=== PATIENT | male | born 1945 | race Caucasian/White ===

== ENCOUNTER 2020-08-08 11:27 | Outpatient (NON) | payer MEDICARE, SELFPAY ==
[2020-08-09 01:18] LABS: SARS-CoV-2 RNA PCR Negative
== END 2020-08-08 11:28 ==
PROVIDERS: PCP Internal Medicine; Visit Provider Internal Medicine
DX: Z20.828 Contact with and (suspected) exposure to other viral communicable diseases (principal); R05 Cough
CPT/HCPCS: 87635; C9803; U0003

== ENCOUNTER 2022-11-27 10:12 | Emergency (ER) | payer MEDICARE, SELFPAY ==
[2022-11-27] VITALS (12 sets, daily range): BP systolic 128–156; BP diastolic 58–67; PULSE 46–64; RESP 13–25; TEMP 36.7; O2SAT 98–100
--- NOTE | ~2022-11-27 | CT_ITS ---
EXAMINATION: CT brain wo con DATE: 11/27/2022 11:48 INDICATION: Dizziness TECHNIQUE: Computed tomography (CT) of the head was performed without intravenous contrast. Sagittal and coronal reconstructions were performed. The mA was adjusted according to patient size. Iterative reconstruction technique was employed. The dose-length product was 605.33 mGy-cm. COMPARISON: head CT dated 01/01/2018 FINDINGS: No acute intracranial hemorrhage, acute infarction or abnormal extra axial fluid collection. There is mild scattered white matter hypoattenuation consistent with chronic small vessel ischemic disease. S ymmetric prominence of the sulci consistent with mild age-appropriate diffuse cerebral volume loss. V entricles are normal and symmetric. No mass/mass effect. Changes of bilateral intraocular lens replac ement. The orbits and mastoid air cells are normal. Mucosal thickening in the paranasal sinuses most prominent at the bilateral ethmoid sinuses. There is dependently layering bubbly mucus in the bilater al maxillary sinuses. IMPRESSION: 1. No acute intracranial process. 2. Age-related changes including mild diffuse volume loss and mild scattered white matter hypoattenua tion consistent with chronic small vessel ischemic disease. 2. Sinus disease with bubbly mucus in the bilateral maxillary sinuses. Correlate clinically for acute sinusitis. Reviewed, dictated and finalized at location L. IMPRESSION: 1. No acute intracranial process. 2. Age-related changes including mild diffuse volume loss and mild scattered wh ite matter hypoattenuation consistent with chronic small vessel ischemic diseas e. 2. Sinus disease with bubbly mucus in the bilateral maxillary sinuses. Correlat e clinically for acute sinusitis.
--- NOTE | 2022-11-27 10:25 | ECG_ITS ---
Measurements Intervals Staley Rate: 56 P: 77 VA: 182 QRS: 18 QRSD: 110 T: 39 QT: 444 QTc: 429 Interpretive Statements SINUS BRADYCARDIA INCOMPLETE RIGHT BUNDLE BRANCH BLOCK BORDERLINE ECG NO PREVIOUS ECG AVAILABLE FOR COMPARISON Electronically Signed On 11-27-2022 11:27:29 CDT by Narinder Geller D.O.
--- NOTE | 2022-11-27 10:58 | ED.DIZZY ---
HPI - Dizziness General Chief Complaint: Dizziness Stated Complaint: Ear infection Time Seen by Provider: 11/27/22 10:45 Source: patient Mode of arrival: ambulatory (with penny) Limitations: no limitations History of Present Illness HPI Narrative: This is a 77 year old male that presents to the ER for dizziness. Ongoing since yesterday. Reports this is worse with standing. Associated with nausea and vomiting. Reports it makes him feel off balance. Reports he has associated hearing loss on the left side. Reports a ringing in his ear. Denies fever, ear pain, discharge from the ear, chest pain, shortness of breath, or focal numbness or weakness. Related Data Home Medications Medication Instructions Recorded Confirmed dronedarone 400 mg tablet (Multaq) 400 mg PO BID 08/20/19 11/07/22 dutasteride 0.5 mg-tamsulosin ER 1 cap PO DAILY 08/20/19 11/07/22 0.4 mg capsule ext.release 24hr mphas (Hilary) magnesium chloride 71.5 mg 71.5 mg PO BID 08/20/19 11/07/22 (magnesium chloride) tablet,delayed release (Slow-Mag) rivaroxaban 20 mg tablet (Xarelto) 20 mg PO DAILY 08/20/19 11/07/22 omega 9-snt-ret-fish oil 1,000 mg 2 cap PO BID 11/29/20 11/07/22 (120 mg-180 mg) capsule (Fish Oil) cholecalciferol (vitamin D3) 50 50 mcg PO DAILY 04/04/21 11/07/22 mcg (2,000 unit) capsule Allergies Allergy/AdvReac Type Severity Reaction Status Date / Time No Known Allergies Allergy Verified 11/27/22 11:04 Review of Systems Review of Systems: CONSTITUTIONAL: Denies fever EYES: Denies visual changes ENT: Reports congestion. Denies otalgia. CARDIOVASCULAR: Denies chest pain RESPIRATORY: Denies dyspnea. GASTROINTESTINAL: Reports nausea, vomiting NEUROLOGIC: Denies headache, numbness, or weakness. All systems reviewed & are unremarkable except as noted in HPI and below PMFSH Past Medical History Medical History (Updated 11/27/22 @ 13:56 by Marianna Heredia PA-C) Atrial fibrillation BMI 31.0-31.9,adult BMI 32.0-32.9,adult BMI 33.0-33.9,adult BMI 34.0-34.9,adult BPH (benign prostatic hyperplasia) Cat scratch of lower leg Cough CVA (cerebral vascular accident) 12/2017 Degenerative joint disease of knee DJD (degenerative joint disease) Elevated PSA Encounter for Medicare annual wellness exam Encounter for routine adult health examination without abnormal findings Exposure to COVID-19 virus Family history of diabetes mellitus Hearing loss Hyperlipidemia Hypertension Hypomagnesemia Macrocytosis On intermediate drug therapy Onychomycosis BONNY (obstructive sleep apnea) BONNY on CPAP Personal history of COVID-19 Right ankle swelling Routine eye exam Vitamin B12 deficiency Vitamin D deficiency Surgical History Surgical History History of total knee replacement (TKR) S/P cataract surgery Family History Family History Sibling Patient's brother is Father Family history of kidney disease Family history of diabetes mellitus in first degree relative, Onset Age: 90 Family history of dementia Family history of congestive heart failure Patient's father is , Onset Age: 90 Diabetes mellitus Mother Family history of Alzheimer's disease Patient's mother is , Onset Age: 87 Other Family history of cardiovascular disease Family history of suicide Social History Social History Smoking status: Never smoker Second hand tobacco smoke exposure: No Alcohol intake: never Lack of Transportation: No Lack of Food: Never True Current Housing: I Have Housing Concerned About Future Housing: No Difficulty Paying Gas/Electric Bills: No Difficulty Paying for Meds: No Currently Unemployed: No Education: Bachelor's Degree Difficulty w/ Childcare or Family Care: No Gender identity (if verbalized by the patient): Mal
[2022-11-27] MEDS: ONDANSETRON INJ 4 MG/2 ML VIAL IV PUSH (11:30)
[2022-11-27] MEDS: SODIUM CHLORIDE 0.9% IV 500 ML 999 ML IV CONT (11:30)
[2022-11-27] MEDS: MECLIZINE HCL 25 MG TABLET PO (11:30)
[2022-11-27 12:09] LABS: Basophils Percent Auto 0.5 % (0.2-1.2); Eosinophils Absolute Auto 0.1 K/mm3 (0-0.3); Eosinophils Percent Auto 2.5 % (0-4.4); Hematocrit 38.2 % (42.0-52.0); Hemoglobin 12.4 g/dL (14.0-18.0); Immature Granulocyte Absolute 0.02 K/mm3 (0.00-0.031); Immature Granulocyte Percent A 0.4 % (0-0.5); Lymphocytes Absolute Auto 0.79 K/mm3 (0.9-3.2); Lymphocytes Percent Auto 14.2 % (18.3-44.2); Mean Corpuscular HGB Conc 32.5 g/dl (32-36); Mean Corpuscular Hemoglobin 33.3 pg (26-34); Mean Corpuscular Volume 102.7 fl (80-100); Mean Platelet Volume 11.3 fl (7.4-10.4); Monocytes Absolute Auto 0.4 K/mm3 (0.1-0.6); Monocytes Percent Auto 6.5 % (2.6-8.5); Neutrophils Absolute Auto 4.2 K/mm3 (1.3-6.7); Neutrophils Percent Auto 75.9 % (45.5-73.1); Platelet Count Result 170 k/mm3 (150-375); Red Blood Count 3.72 M/mm3 (4.6-6.20); Red Cell Distribution Width 13.9 % (11.5-14.5); White Blood Count 5.6 K/mm3 (4.5-10.0)
[2022-11-27 12:21] LABS: Alanine Aminotransferase 15 U/L (6-50); Albumin Level 4.3 g/dL (3.5-5.1); Alkaline Phosphatase 71 U/L (38-126); Anion Gap 7 mmol/L (8-16); Aspartate Amino Transferase 23 U/L (17-59); Bilirubin,Total 0.8 mg/dL (0.2-1.3); Blood Urea Nitrogen 7 mg/dL (9-20); Calcium 8.3 mg/dL (8.4-10.2); Carbon Dioxide 22 mmol/L (22-30); Chloride 109 mmol/L (98-107); Estimated CRCL calculation 68 ml/min; Estimated Glomerular Filt Rate > 60; Glucose 116 mg/dL (65-110); Potassium 4.3 mmol/L (3.4-5.0); Sodium 138 mmol/L (137-145)
--- NOTE | 2022-11-27 13:19 | PC.NURSE ---
assumed care of pt. pt resting on stretcher, no distress noted. pt denies current dizziness or pain at this time
--- NOTE | 2022-11-27 13:50 | PC.NURSE ---
ambulated pt per provider's request. pt reported slight dizziness upon sitting, but subsided prior to standing. pt ambulated around nurses' desk. no gait disturbances noted, pt denies complaint or dizziness. provider aware
== END 2022-11-27 14:40 | disposition home or self-care (01) ==
PROVIDERS: Emergency Provider Physician Assistant; PCP Internal Medicine
DX: R42 Dizziness and giddiness (principal); J32.0 Chronic maxillary sinusitis; I48.91 Unspecified atrial fibrillation; E78.5 Hyperlipidemia, unspecified; I10 Essential (primary) hypertension; G47.33 Obstructive sleep apnea (adult) (pediatric); E53.8 Deficiency of other specified B group vitamins; E55.9 Vitamin D deficiency, unspecified; M17.9 Osteoarthritis of knee, unspecified; Z86.73 Personal history of transient ischemic attack (TIA), and cerebral infarction without residual deficits; Z96.659 Presence of unspecified artificial knee joint; Z98.49 Cataract extraction status, unspecified eye; Z79.01 Long term (current) use of anticoagulants; R00.1 Bradycardia, unspecified; I45.10 Unspecified right bundle-branch block
CPT/HCPCS: 36415; 70450; 80053; 85025; 93005; 96361; 96374; 99284; A9270; J2405; J7040

== ENCOUNTER 2023-01-03 07:44 | Outpatient (CLI) | payer MEDICARE, SELFPAY | END 2023-01-03 07:45 | disposition home or self-care (01) | LOC: ANHAUDIO 07:46 | PROVIDERS: PCP Internal Medicine; Visit Provider Otolaryngology | DX: H90.3 Sensorineural hearing loss, bilateral (principal) | CPT/HCPCS: 92557; 92567 ==

== ENCOUNTER 2023-01-13 13:32 | Emergency (ER) | payer MEDICARE, SELFPAY ==
[2023-01-13 13:58] VITALS: BP 135/58; PULSE 68; RESP 16; TEMP 37.1; O2SAT 98
--- NOTE | 2023-01-13 14:14 | ED.SKABFB ---
HPI - Skin/Abscess/Foreign Bdy General Chief complaint: Skin/Abscess/Foreign Body Stated complaint: cat bite/infection Time Seen by Provider: 01/13/23 14:14 Source: patient, RN notes reviewed and old records reviewed Mode of arrival: ambulatory Limitations: no limitations History of Present Illness HPI narrative: 77-year-old male who presents to [facility] care with complaints of being bit by cat last night at his home. Today patient noted swelling to his left forearm around entire circumference of left forearm with streaking up the inner arm toward elbow. Patient denies any acute fevers, chills or sweats , Patient has noted 4 puncture wounds to left forearm from cat. Patient reports concern for increased infection of left arm due to previous left elbow replacement surgery. Patient states his tetanus is up to date from 3 years ago when cat bit his leg. MD complaint: other ( cat bite) Onset (ago): day(s) (occurred yesterday) Tetanus up to date: yes (received 3 years ago) Severity scale (1-10): 3 Treatments prior to arrival: other (cleansed with soap and water) Related Data Home Medications Medication Instructions Recorded Confirmed dronedarone 400 mg tablet (Multaq) 400 mg PO BID 08/20/19 01/13/23 dutasteride 0.5 mg-tamsulosin ER 1 cap PO DAILY 08/20/19 01/13/23 0.4 mg capsule ext.release 24hr mphas (Hilary) magnesium chloride 71.5 mg 71.5 mg PO BID 08/20/19 01/13/23 (magnesium chloride) tablet,delayed release (Slow-Mag) rivaroxaban 20 mg tablet (Xarelto) 20 mg PO DAILY 08/20/19 01/13/23 omega 2-uum-uan-fish oil 1,000 mg 2 cap PO BID 11/29/20 01/13/23 (120 mg-180 mg) capsule (Fish Oil) cholecalciferol (vitamin D3) 50 50 mcg PO DAILY 04/04/21 01/13/23 mcg (2,000 unit) capsule Allergies Allergy/AdvReac Type Severity Reaction Status Date / Time No Known Allergies Allergy Verified 01/13/23 13:47 Review of Systems Review of Systems: CONSTITUTIONAL: Denies fever, chills, or sweats. CARDIOVASCULAR: Denies chest pain, palpitations, or edema. RESPIRATORY: Denies cough or dyspnea. GASTROINTESTINAL: Denies abdominal pain, nausea, vomiting SKIN: Reports redness and swelling. Denies purulent drainage, has circumferential redness to left forearm with 4 bite reilly to left forearm. MUSCULOSKELETAL: Denies myalgia. NEUROLOGIC: Denies headache, numbness All systems reviewed & are unremarkable except as noted in HPI and below PMFSH Past Medical History Medical History Atrial fibrillation BMI 31.0-31.9,adult BMI 32.0-32.9,adult BMI 33.0-33.9,adult BMI 34.0-34.9,adult BPH (benign prostatic hyperplasia) Cat scratch of lower leg Cough CVA (cerebral vascular accident) 12/2017 Degenerative joint disease of knee DJD (degenerative joint disease) Elevated PSA Encounter for Medicare annual wellness exam Encounter for routine adult health examination without abnormal findings Exposure to COVID-19 virus Family history of diabetes mellitus Hearing loss Hyperlipidemia Hypertension Hypomagnesemia Macrocytosis On intermediate drug therapy Onychomycosis BONNY (obstructive sleep apnea) BONNY on CPAP Personal history of COVID-19 Right ankle swelling Routine eye exam Vitamin B12 deficiency Vitamin D deficiency Surgical History Surgical History History of total knee replacement (TKR) S/P cataract surgery Family History Family History Sibling Patient's brother is Father Family history of kidney disease Family history of diabetes mellitus in first degree relative, Onset Age: 90 Family history of dementia Family history of congestive heart failure Patient's father is , Onset Age: 90 Diabetes mellitus Mother Family history of Alzheimer's disease Patient's mother is , Onset Age: 87 Other Family history of cardiovasc
== END 2023-01-13 14:35 | disposition short-term general hospital (02) ==
PROVIDERS: Emergency Provider Registered Nurse; PCP Internal Medicine
DX: S51.842A Puncture wound with foreign body of left forearm, initial encounter (principal); L03.114 Cellulitis of left upper limb; W55.01XA Bitten by cat, initial encounter; I48.91 Unspecified atrial fibrillation; Z86.73 Personal history of transient ischemic attack (TIA), and cerebral infarction without residual deficits; E78.5 Hyperlipidemia, unspecified; I10 Essential (primary) hypertension; G47.33 Obstructive sleep apnea (adult) (pediatric); Z86.16 Personal history of COVID-19; E55.9 Vitamin D deficiency, unspecified
CPT/HCPCS: 99212; G0463

== ENCOUNTER 2023-01-13 14:54 | Emergency (ER) | payer MEDICARE, SELFPAY ==
--- NOTE | ~2023-01-13 | XR_ITS ---
EXAMINATION: XR forearm LT 2V INDICATION: Two views of the left forearm are obtained four radiographs. TECHNIQUE: 06/30/2009 COMPARISON: None available FINDINGS: There are changes of radial head replacement. Bone alignment is normal. There is no fractur e. There is moderate soft tissue swelling of the distal forearm. IMPRESSION: 1. Moderate soft tissue swelling of the distal forearm without acute osseous abnormality Reviewed, dictated and finalized at location F. IMPRESSION: 1. Moderate soft tissue swelling of the distal forearm without acute osseous ab normality
[2023-01-13 15:00] VITALS: BP 177/61; PULSE 68; RESP 16; TEMP 36.5; O2SAT 100
--- NOTE | 2023-01-13 15:54 | ED.ANIMALBIT ---
HPI - Animal Bite General Chief Complaint: Animal Bite Stated Complaint: Cat bite Time Seen by Provider: 01/13/23 15:29 Source: patient, RN notes reviewed and old records reviewed Mode of arrival: ambulatory Limitations: no limitations History of Present Illness HPI narrative: This is a 77 year old male who presents for evaluation of left arm infection. He states last night his cat scatched his left forearm. He states the cat was sitting on him and he was trying to get up and the catch scratched him. He now has swelling at site of puncture wounds and streaking up his arm. He states last year, he suffered a cat bite and he got cat scratch fever. He went for evaluation at [facility] and he was referred to ER for IV antibiotics. His tetanus was up dated last year. He denies fever, chills, nausea or vomiting. Related Data Home Medications Medication Instructions Recorded Confirmed dronedarone 400 mg tablet (Multaq) 400 mg PO BID 08/20/19 01/13/23 dutasteride 0.5 mg-tamsulosin ER 1 cap PO DAILY 08/20/19 01/13/23 0.4 mg capsule ext.release 24hr mphas (Hilary) magnesium chloride 71.5 mg 71.5 mg PO BID 08/20/19 01/13/23 (magnesium chloride) tablet,delayed release (Slow-Mag) rivaroxaban 20 mg tablet (Xarelto) 20 mg PO DAILY 08/20/19 01/13/23 omega 2-noa-qir-fish oil 1,000 mg 2 cap PO BID 11/29/20 01/13/23 (120 mg-180 mg) capsule (Fish Oil) cholecalciferol (vitamin D3) 50 50 mcg PO DAILY 04/04/21 01/13/23 mcg (2,000 unit) capsule Allergies Allergy/AdvReac Type Severity Reaction Status Date / Time No Known Allergies Allergy Verified 01/13/23 13:47 Review of Systems Constitutional: Constitutional: Denies weakness Cardiovascular: Cardiovascular: Denies syncope, Denies rapid heart rate, Denies irregular heart rhythm, Denies leg edema and Denies dyspnea Respiratory: Respiratory: Denies chest congestion, Denies hemoptysis, Denies excessive phlegm production and Denies dyspnea Gastrointestinal: Gastrointestinal: Denies abdominal pain, Denies hematochezia, Denies diarrhea and Denies vomiting Genitourinary: Genitourinary: Denies hematuria, Denies dysuria, Denies penile discharge and Denies testicular pain Musculoskeletal: Musculoskeletal: Denies joint swelling, Denies loss of height and Denies muscle weakness Integumentary/Breasts: Skin/Breast: Reports erythema Neurologic: Denies syncope, Denies focal weakness and Denies weakness PMFSH Past Medical History Medical History Atrial fibrillation BMI 31.0-31.9,adult BMI 32.0-32.9,adult BMI 33.0-33.9,adult BMI 34.0-34.9,adult BPH (benign prostatic hyperplasia) Cat scratch of lower leg Cough CVA (cerebral vascular accident) 12/2017 Degenerative joint disease of knee DJD (degenerative joint disease) Elevated PSA Encounter for Medicare annual wellness exam Encounter for routine adult health examination without abnormal findings Exposure to COVID-19 virus Family history of diabetes mellitus Hearing loss Hyperlipidemia Hypertension Hypomagnesemia Macrocytosis 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 Onychomycosis BONNY (obstructive sleep apnea) BONNY on CPAP Personal history of COVID-19 Right ankle swelling Routine eye exam Vitamin B12 deficiency Vitamin D deficiency Surgical History Surgical History History of total knee replacement (TKR) S/P cataract surgery Family History Family History Sibling Patient's brother is Father Family history of kidney disease Family history of diabetes mellitus in first degree relative, Onset Age: 90 Family history of dementia Family history of congestive heart failure Patient's father is , Onset Age: 90 Diabetes mellitus Mother Family history of Alzheimer's disease Patient's mother is , Onset Age: 87 Other Family histor
[2023-01-13] MEDS: AMPICILLIN SULB 3 GM/NS 100 ML 3 GM/100 ML VIAL IVPB (15:57)
[2023-01-13 15:58] LABS: Basophils Absolute Auto 0.1 K/mm3 (0.0-0.1); Basophils Percent Auto 0.5 % (0.2-1.2); Eosinophils Absolute Auto 0.3 K/mm3 (0-0.3); Eosinophils Percent Auto 2.6 % (0-4.4); Hemoglobin 13.5 g/dL (14.0-18.0); Immature Granulocyte Absolute 0.02 K/mm3 (0.00-0.031); Immature Granulocyte Percent A 0.2 % (0-0.5); Lymphocytes Absolute Auto 1.75 K/mm3 (0.9-3.2); Lymphocytes Percent Auto 17.8 % (18.3-44.2); Mean Corpuscular HGB Conc 33.8 g/dl (32-36); Mean Corpuscular Hemoglobin 33.5 pg (26-34); Mean Corpuscular Volume 99.3 fl (80-100); Mean Platelet Volume 10.6 fl (7.4-10.4); Monocytes Percent Auto 9.7 % (2.6-8.5); Neutrophils Absolute Auto 6.8 K/mm3 (1.3-6.7); Neutrophils Percent Auto 69.2 % (45.5-73.1); Platelet Count Result 194 k/mm3 (150-375); Red Blood Count 4.03 M/mm3 (4.6-6.20); Red Cell Distribution Width 13.7 % (11.5-14.5); White Blood Count 9.8 K/mm3 (4.5-10.0)
[2023-01-13 17:52] LABS: Alanine Aminotransferase 19 U/L (6-50); Albumin Level 4.7 g/dL (3.5-5.1); Alkaline Phosphatase 88 U/L (38-126); Anion Gap 10 mmol/L (8-16); Aspartate Amino Transferase 25 U/L (17-59); Bilirubin,Total 0.8 mg/dL (0.2-1.3); Blood Urea Nitrogen 17 mg/dL (9-20); Calcium 8.7 mg/dL (8.4-10.2); Carbon Dioxide 24 mmol/L (22-30); Chloride 104 mmol/L (98-107); Estimated CRCL calculation 59 ml/min; Estimated Glomerular Filt Rate > 60; Glucose 101 mg/dL (65-110); Potassium 4.6 mmol/L (3.4-5.0); Sodium 138 mmol/L (137-145)
[2023-01-13] MEDS: AMOXICILLIN/CLAVULANATE K 500-125 MG TAB 1 TABLET PO (18:25)
[2023-01-13 18:41] VITALS: BP 150/70; PULSE 54; RESP 16; TEMP 36.8; O2SAT 100
== END 2023-01-13 18:43 | disposition home or self-care (01) ==
PROVIDERS: Emergency Provider General Practice; PCP Internal Medicine
DX: S50.812A Abrasion of left forearm, initial encounter (principal); I48.91 Unspecified atrial fibrillation; I10 Essential (primary) hypertension; G47.30 Sleep apnea, unspecified; W55.03XA Scratched by cat, initial encounter
CPT/HCPCS: 36415; 73090; 80053; 85025; 86140; 96365; 99284; A9270; J0295

== ENCOUNTER → 2023-01-15 10:45 | Outpatient (CLI) | payer MEDICARE, SELFPAY ==
--- NOTE | ~2023-01-15 | MR_ITS ---
EXAMINATION: MR brain IAC wo/w con DATE: 01/15/2023 11:41 INDICATION: Left-sided hearing loss. TECHNIQUE: Magnetic resonance imaging (MRI) of the brain, brainstem, and internal auditory canals was performed without and with 20 mL MultiHance intravenous contrast. COMPARISON: Head CT 11/27/2022 FINDINGS: There is an old infarct involving the left insula and left frontoparietal region. There are scattered areas of nonspecific increased T2-weighted signal intensity in the cerebral white matter. There is no intracranial hemorrhage, acute infarction, or abnormal intracranial mass lesion. The vent ricles are normal in size. There is mucosal thickening in the paranasal sinuses. There are likely rafiq nges of ocular lens replacement surgeries. The internal auditory canals and inner and middle ears are normal. The mastoid air cells are normal. IMPRESSION: 1. Old infarct involving the left insula and left frontoparietal region. 2. Moderate nonspecific cerebral white matter disease, which likely represents chronic small vessel i schemic disease. Reviewed, dictated and finalized at location A. IMPRESSION: 1. Old infarct involving the left insula and left frontoparietal region. 2. Moderate nonspecific cerebral white matter disease, which likely represents chronic small vessel ischemic disease.
== END ==
PROVIDERS: PCP Internal Medicine; Visit Provider Otolaryngology
DX: H91.92 Unspecified hearing loss, left ear (principal); R93.0 Abnormal findings on diagnostic imaging of skull and head, not elsewhere classified
CPT/HCPCS: 70553; A9577

== ENCOUNTER 2023-12-25 08:28 | Emergency (ER) | payer MEDICARE, SELFPAY ==
[2023-12-25 08:44] VITALS: BP 134/64; PULSE 60; RESP 16; TEMP 36.6; O2SAT 100
--- NOTE | 2023-12-25 08:45 | ED.WOUNDLAC ---
HPI - Wound/Laceration General Chief Complaint: Wound/Laceration Stated Complaint: R ARM LACERATION Time Seen by Provider: 12/25/23 08:45 Source: patient Mode of arrival: ambulatory Limitations: no limitations History of Present Illness HPI narrative: 78 yo M presents with c/o skin tear to R arm. Pt states he has an old door at his house that slams shut. Was trying to let his dog in and door slammed shut on his arm. Placed two large bandaids over skin tear. Pt on blood thinner. Continues to have some weeping from skin tear. Tetanus UTD. All systems reviewed and negative except as noted above. Related Data Home Medications Medication Instructions Recorded Confirmed dronedarone 400 mg tablet (Multaq) 400 mg PO BID 08/20/19 12/25/23 dutasteride 0.5 mg-tamsulosin ER 1 cap PO DAILY 08/20/19 12/25/23 0.4 mg capsule ext.release 24hr mphas (Hilary) magnesium chloride 71.5 mg 71.5 mg PO BID 08/20/19 12/25/23 (magnesium chloride) tablet,delayed release (Slow-Mag) rivaroxaban 20 mg tablet (Xarelto) 20 mg PO DAILY 08/20/19 12/25/23 omega 8-ypj-njk-fish oil 1,000 mg 2 cap PO BID 11/29/20 12/25/23 (120 mg-180 mg) capsule (Fish Oil) cholecalciferol (vitamin D3) 50 50 mcg PO DAILY 04/04/21 12/25/23 mcg (2,000 unit) capsule ascorbic acid (vitamin C) 1,000 mg 1 g PO DAILY 09/18/23 12/25/23 capsule knmtrwmr-rl-agdty 300 mcg-K 60 1 tablet PO DAILY 09/18/23 12/25/23 mcg-lycop 600 mcg-lutein 300 mcg tablet (Centrum Silver Men) tamsulosin 0.4 mg capsule 0.4 mg PO DAILY 12/25/23 12/25/23 Allergies Allergy/AdvReac Type Severity Reaction Status Date / Time No Known Allergies Allergy Verified 12/25/23 08:50 Review of Systems Review of Systems: CONSTITUTIONAL: Denies fever, chills, or sweats. EYES: Denies visual changes, redness, or discharge. ENT: Denies rhinorrhea, congestion, sore throat, or otalgia. CARDIOVASCULAR: Denies chest pain, palpitations, or edema. RESPIRATORY: Denies cough or dyspnea. GASTROINTESTINAL: Denies abdominal pain, nausea, vomiting, or diarrhea. GENITOURINARY: Denies dysuria or hematuria. SKIN: Reports good tear to right forearm. MUSCULOSKELETAL: Denies back pain, joint pain, or myalgia. NEUROLOGIC: Denies headache, numbness, or weakness. PSYCHIATRIC: Denies anxiety or depression. All other systems reviewed are negative, except as documented in HPI. [facility] Past Medical History Medical History Atrial fibrillation BMI 31.0-31.9,adult BMI 32.0-32.9,adult BMI 33.0-33.9,adult BMI 34.0-34.9,adult BPH (benign prostatic hyperplasia) BPPV (benign paroxysmal positional vertigo) Cat scratch of lower leg Changing skin lesion Cough CVA (cerebral vascular accident) 12/2017 Degenerative joint disease of knee DJD (degenerative joint disease) Elevated PSA Encounter for Medicare annual wellness exam Encounter for routine adult health examination with abnormal findings Encounter for routine adult health examination without abnormal findings Exposure to COVID-19 virus Family history of diabetes mellitus Hyperlipidemia Hypertension Hypomagnesemia Macrocytosis 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 Onychomycosis BONNY on CPAP Personal history of COVID-19 Right ankle swelling Routine eye exam Vitamin B12 deficiency Vitamin D deficiency Surgical History Surgical History History of total knee replacement (TKR) S/P cataract surgery Family History Family History Sibling Patient's brother is Father Family history of kidney disease Family history of diabetes mellitus in first degree relative, Onset Age: 90 Family history of dementia Family history of congestive heart failure Patient's father is , Onset Age: 90 Diabetes mellitus Mother Family history of Alzheimer's disease Patient's mother is , Onset Age: 87 Other
== END 2023-12-25 08:59 | disposition home or self-care (01) ==
PROVIDERS: Emergency Provider Nurse Practitioner Family; PCP Internal Medicine
DX: S51.811A Laceration without foreign body of right forearm, initial encounter (principal); W20.8XXA Other cause of strike by thrown, projected or falling object, initial encounter; I48.91 Unspecified atrial fibrillation; N40.0 Benign prostatic hyperplasia without lower urinary tract symptoms; E78.5 Hyperlipidemia, unspecified; I10 Essential (primary) hypertension; G47.33 Obstructive sleep apnea (adult) (pediatric); E55.9 Vitamin D deficiency, unspecified; Z86.73 Personal history of transient ischemic attack (TIA), and cerebral infarction without residual deficits; Z86.16 Personal history of COVID-19; Z79.01 Long term (current) use of anticoagulants
CPT/HCPCS: 99213; G0463

== ENCOUNTER 2024-03-16 09:32 | Outpatient (CLI) | payer MEDICARE, SELFPAY ==
--- NOTE | ~2024-03-16 | XR_ITS ---
SINGLE AP VIEW PELVIS Ordering provider: Coy Schafer MD History: . M54.50 - Low back pain, unspecified, chronic, no inj . Comparison: None. FINDINGS: BONES: No acute fracture or dislocation. HIP JOINT SPACES: Normal. SACROILIAC JOINT SPACES/LUMBAR SPINE: The sacroiliac joint spaces are normal. Mild degenerative christopher es of the visualized lower lumbar spine. PUBIC SYMPHYSIS: Normal. SOFT TISSUES: Normal. IMPRESSION: No acute osseous abnormality pelvis. Reviewed, dictated and finalized at location A.
--- NOTE | ~2024-03-16 | XR_ITS ---
3 VIEWS LUMBAR SPINE Ordering provider: Coy Schafer MD History: . M54.50 - Low back pain chronic unspecified,no known injuries . Comparison: None. FINDINGS: VERTEBRAL BODIES:Loss of volume of L2 suggestive of compression fracture which may be acute. Further evaluation advised. No subluxation. Degenerative changes of the spine. DISK SPACES: Narrowing of the disc L1-L2, L2-L3, L3-L4, L4-L5 and L5-S1 SOFT TISSUES: Normal. IMPRESSION: Compression fracture of L2 of indeterminate age. Further evaluation advised. Multilevel degenerative disc disease. Reviewed, dictated and finalized at location A.
== END 2024-03-16 09:33 | disposition home or self-care (01) ==
PROVIDERS: PCP Internal Medicine; Visit Provider Internal Medicine
DX: M51.36 Other intervertebral disc degeneration, lumbar region (principal)
CPT/HCPCS: 72110; 72170

== ENCOUNTER 2024-03-23 06:56 | Outpatient (CLI) | payer MEDICARE, SELFPAY ==
--- NOTE | ~2024-03-23 | MR_ITS ---
Procedure: MR lumbar spine wo con Ordering provider: Coy Schafer MD History: . M54.50 - Low back pain, unspecified . Comparison: None. Technique: MRI lumbar spine without contrast. FINDINGS: SPINAL CORD: Normal. Cord ends at the level of L1-L2. VERTEBRAL BODIES: Acute Compression fracture of L2 is noted. Edema is seen in L2 on T2-weighted image s. No retropulsed fragments. Minimal retrolisthesis at the level of L5-S1. Otherwise normal height an d alignment. Normal marrow signal. DISK SPACES: Narrowing of the disc L5-S1. Slight narrowing of the disc L3-L4. Diffuse disc bulge at t he level of L2-L3. Mild diffuse disc bulge at the level of L5-S1. Bilateral narrowing of the foramina at the level of L5-S1 more on the left side. STENOSIS: None. PARASPINOUS SOFT TISSUES: Normal. Left renal cyst. IMPRESSION: Acute Compression fracture of L2. Reviewed, dictated and finalized at location A.
== END 2024-03-23 06:57 | disposition home or self-care (01) ==
PROVIDERS: PCP Internal Medicine; Visit Provider Internal Medicine
DX: R93.7 Abnormal findings on diagnostic imaging of other parts of musculoskeletal system (principal); S32.020A Wedge compression fracture of second lumbar vertebra, initial encounter for closed fracture; X58.XXXA Exposure to other specified factors, initial encounter
CPT/HCPCS: 72148

== ENCOUNTER 2024-05-14 13:42 | Outpatient (CLI) | payer MEDICARE, SELFPAY ==
--- NOTE | ~2024-05-14 | XR_ITS ---
EXAMINATION: XR lumbar spine 2-3V DATE: 05/14/2024 14:15 INDICATION: Compression fracture of L2. TECHNIQUE: 3 views of lumbar spine were obtained. COMPARISON: Lumbar spine radiographs 03/16/2024, MRI 03/23/24 FINDINGS: There is 3 mm retrolisthesis of L5 on S1. There is a burst fracture of L2 with 2/5 loss of height. There is mildly decreased disc height at L1-L2 and L2-L3, moderately decreased disc height at L3-L4, mildly decreased disc at L4-L5, and severely decreased disc at L5-S1. There is multilevel fac et joint osteoarthritis, severe in lower lumbar spine. IMPRESSION: 1. L2 burst fracture, stable from 03/16/2024. 2. Severe lower lumbar spondylosis. Reviewed, dictated and finalized at location A.
== END 2024-05-14 13:43 | disposition home or self-care (01) ==
PROVIDERS: PCP Internal Medicine
DX: S32.021D Stable burst fracture of second lumbar vertebra, subsequent encounter for fracture with routine healing (principal); M47.816 Spondylosis without myelopathy or radiculopathy, lumbar region
CPT/HCPCS: 72100

== ENCOUNTER 2025-03-26 01:11 | Day surgery (SDC) | payer MEDICARE, SELFPAY ==
[2025-03-08 12:19] VITALS: BMI 29.6
--- NOTE | 2025-03-08 14:09 | PC.NURSE ---
Spoke with patient regarding medication _XARELTO_. _PATIENT Verbalizes understanding that the last dose is to be taken on _03/22/25_ and the Endoscopist will instruct them when to restart after the procedure.
--- OUTSIDE RECORDS SUMMARY | 2025-03-26 01:14 | XMS_ITS | Clinical Summary ---
Author Organization [facility] Address [facility] [place] [address] Care Team Providers Care Farm Machinery Set Up Mechanic Name Role Phone Coy Schafer MD Primary Care Provider [phone] Allergies No known active allergies Medications lisinopril 10 MG tablet Take 10 mg by mouth daily. Active rosuvastatin 20 MG tablet Take 20 mg by mouth nightly at bedtime. Active magnesium-calci um EC 71.5-119 MG Tab EC tablet Take 1 tablet by mouth daily. Active omega-3 fatty acid 500 MG capsule Take 1,000 mg by mouth daily. Active multi vitamin/mineral s tablet Take 1 tablet by mouth daily. Active rivaroxaban 20 MG Tab tablet Take 20 mg by mouth daily with supper. Take with food Active dronedarone 400 MG tablet Take 400 mg by mouth 2 (two) times daily with meals. Active tamsulosin 0.4 MG Cap Take 0.4 mg by mouth daily. Active dutasteride 0.5 MG capsule Take 0.5 mg by mouth daily. Active Active Problems No known active problems Social History Tobacco Use Types Packs/Day Years Used Date Smoking Tobacco: Never Smokeless Tobacco: Never Alcohol Use Standard Drinks/Week Comments Not Currently 0 (1 standard drink = 0.6 oz pur e alcohol) Sex and Gender Information Value Date Recorded Sex Assigned at Not on file Legal Sex Male 1:38 PM BUSHEL GIRL Gender Identity Not on file Sexual Orientation Not on file Last Filed Vital Signs Vital Sign Reading Time Taken Comments Blood Pressure 132/55 10/24/2020 8:37 AM BUSHEL GIRL Pulse 58 10/24/2020 8:37 AM BUSHEL GIRL Temperature 36.4 C (97.5 F) 10/24/2020 8:37 AM BUSHEL GIRL Respiratory Rate 18 10/24/2020 8:37 AM BUSHEL GIRL Oxygen Saturation 100% 10/24/2020 8:37 AM BUSHEL GIRL Inhaled Oxygen Concentration - - Weight 102.1 kg (225 lb) 10/18/2020 8:56 AM BUSHEL GIRL Height 175.3 cm (5' 9) 10/18/2020 8:56 AM BUSHEL GIRL Body Mass Index 33.23 10/18/2020 8:56 AM BUSHEL GIRL Plan of Treatment Health Maintenance Due Date Last Done Comments Hepatitis C 1963 DTaP, Tdap and Td Vaccines ( 1 - Tdap) 1965 Pneumococcal Vaccine: 50+ Ye ars (1 of 1 - PCV) 1996 Zoster Vaccines (1 of 2) 1996 Annual Medicare Wellness Visit 2011 RSV Immunization or 60+ Years (1 - 1-dose 75+ series) 2021 COVID-19 Vaccine ( - 2023-2 5 season) 2024 Meningococcal B Vaccine Aged Out No l onger eligible based on patient's age to complete this topic Meningococcal Vaccine Aged Out No misha robson eligible based on patient's age to complete this topic RSV Immunizations Under 20 Months Aged Out No longer eligible based on patient's age to complete this topic Medical Devices Implanted Type Area Steak Sauce Maker Device Identifier Shelf Expiration Date Model / Serial / Lot Knee Components Knee Components Left: Knee Iol [employer] [id number] - [id number] Implanted:Qty: 1 on 09/26/2020 by Triston Mayes MD at [facility] Lens Right: Eye [employer] 01/14/2021 [id number] / [id number] / Intraocular Lens Implanted:Qty: 1 on 10/24/2020 by Triston Mayes MD at [facility] Left: Eye 12/11/2022 [id number] / [id number] / Insurance MEDICARE [employer] Care Teams Farm Machinery Set Up Mechanic Relationship Specialty Start Date End Date Coy Schafer MD [address] [place] [address] PCP - General INTERNAL MEDICINE 09/20/20
--- OUTSIDE RECORDS SUMMARY | 2025-03-26 01:14 | XMS_ITS | Encounter Summary ---
Author Organization [facility] Healthcare Address [address] [place] [address] Care Team Providers Care Farm Equipment Mechanic Apprentice Name Role Phone Coy Schafer MD Primary Care Provider [phone] Encounter Details Date Type Department Care Team (Late st Contact Info) Description 12/31/2017 Orders Only [facility] Health Information Management [address] [place] [id number] Scanning, Provider Social History Tobacco Use Types Packs/Day Years Used Date Smoking Tobacco: Never Assessed Sex and Gender Information Value Date Recorded Sex Assigned at Not on file Legal Sex Male 3:14 AM RETURN AGENT Gender Identity Male 10/03/2021 9:50 AM RETURN AGENT Sexual Orientation Straight 10/03/2021 9: 51 AM RETURN AGENT documented as of this encounter Plan of Treatment Not on file documented as of this encounter Procedures Procedure Name Priority Date/Time Associated Diagnosis Comments CARDIOLOGY DOCUMENT SCAN 12/31/2017 documented in this encounter Results * Cardiology Document Scan (12/31/2017) Anatomical Region Laterality Modality Other us Provider Scanning CV CARDIAC SERVICES PROCEDURES Final Result documented in this encounter Visit Diagnoses Not on filedocumented in this encounter Care Teams Farm Equipment Mechanic Apprentice Relationship Specialty Start Date End Date Coy Schafer MD [address] [place] [address] PCP - General Internal Medicine 12/15/17 documented as of this encounter
--- OUTSIDE RECORDS SUMMARY | 2025-03-26 01:14 | XMS_ITS | Encounter Summary ---
Author Organization [facility] Address [facility] [place] [address] Care Team Providers Care Vendor Management Consultant Name Role Phone Coy Schafer MD Primary Care Provider [phone] Encounter Details Date Type Department Care Team (Late st Contact Info) Description 09/20/2020 Prep for Procedure [facility] [address], [place] [id number] Triston Mayes MD [address] [facility] [address] [place] [address] Social History Tobacco Use Types Packs/Day Years Used Date Smoking Tobacco: Never Smokeless Tobacco: Never Alcohol Use Standard Drinks/Week Comments Not Currently 0 (1 standard drink = 0.6 oz pur e alcohol) Sex and Gender Information Value Date Recorded Sex Assigned at Not on file Legal Sex Male 1:38 PM HYDRAULIC ENGINEER Gender Identity Not on file Sexual Orientation Not on file COVID-19 Exposure Response Date Recorded In the last month, have you been in contact with someone who was confirmed or suspected to have Coronavirus / COVID-19? No / Unsure 09/23/2020 8:17 AM HYDRAULIC ENGINEER documented as of this encounter Plan of Treatment Not on file documented as of this encounter Results * PRE-SURGICAL/PRE-PROCEDURE CORONAVIRUS (COVID 19) (10/21/2020 8:09 AM HYDRAULIC ENGINEER) CORONAVIRUS SARS COV 2 PCR (RESP) NOT DETECTED NOT DETECTED 10/22/2020 7:41 PM HYDRAULIC ENGINEER [facility] Comment: A Not Detected (negative) test result for this test means that SARS- CoV-2 RNA was not present in the specimen above the limit of detection. A negative result does not rule out the possibility of COVID-19 and should not be used as the sole basis for treatment or patient management decisions. If COVID-19 is still suspected, based on exposure history together with other clinical findings, re-testing should be considered in consultation with public health authorities. Laboratory test results should always be considered in the context of clinical observations and epidemiological data in making a final diagnosis and patient management decisions. Please review the Fact Sheets and FDA authorized labeling available for health care providers and patients using the following websites: https://www.[employer].WebLayers/home/Covid-19/HCP/NAAT/fact-sheet2 https://www.[employer].WebLayers/home/Covid-19/Patients/NAAT/ fact-sheet2 This test has been authorized by the FDA under an Emergency Use Authorization (EUA) for use by authorized laboratories. Due to the current public health emergency, [facility] is receiving a high volume of samples from a wide variety of swabs and media for COVID-19 testing. In order to serve patients during this public health crisis, samples from appropriate clinical sources are being tested. Negative test results derived from specimens received in non-commercially manufactured viral collection and transport media, or in media and sample collection kits not yet authorized by FDA for COVID-19 testing should be cautiously evaluated and the patient potentially subjected to extra precautions such as additional clinical monitoring, including collection of an additional specimen. Methodology: Nucleic Acid Amplification Test (NAAT) includes RT-PCR or TMA Additional information about COVID-19 can be found at the [facility] website: www.[email or web address].WebLayers/[email or web address]. Test performed at [facility] [address] [place] [address] Director: RICARDO VALDEZ DO,MPH FIRST TEST NO 10/21/2020 7:49 AM [facility] EMPLOYED IN HEALTHCARE NO 10/21/2020 7:49 AM [facility] SYMPTOMATIC DEFINED BY CDC NO 10/21/2020 7:49 AM [facility] DATE OF SYMPTOM ONSET UNKNOWN 10/21/2020 9:30 AM HYDRAULIC ENGINEER [facility] HOSPITALIZATION STATUS NO 10/21/2020 7:49 AM HYDRAULIC ENGINEER [facility] PATIENT IN ICU NO 10/21/2020 7:49 AM HYDRAULIC ENGINEER [facility] RESIDENT OF [facility] NO 10/21/2020 7:49 AM HYDRAULIC ENGINEER [facility] NO 10/21/2020 9:30 AM HYDRAULIC ENGINEER [facility] PATIENT'S RACE WHITE OR 10/21/2020 7:49 AM HYDRAULIC ENGINEER [facility] ETHNICITY NONHISPANIC 10/21/2020 7:49 AM HYDRAULIC ENGINEER [facility] SOURCE (QST) NASOPHARYNGEAL SWAB 10/21/2020 7:49 AM HYDRAULIC ENGINEER [facility] NASOPHARYNGEAL SWAB / Unknown 10/21/2020 8:09 AM HYDRAULIC ENGINEER Triston Mayes MD MICROBIOLOGY - GENERAL ORDERAB LES Final Result Performing Organization Address City/State/[facility] Co de Phone Number [facility] [address] [place] [address], [facility] [id number] [place] [address], * PRE-SURGICAL/PRE-PROCEDURE CORONAVIRUS (COVID 19) (09/23/2020 8:33 AM HYDRAULIC ENGINEER) CORONAVIRUS SARS COV 2 PCR (RESP) NOT DETECTED NOT DETECTED 09/24/2020 2:51 PM HYDRAULIC ENGINEER [facility] Comment: A Not Detected (negative) test result for this test means that SARS- CoV-2 RNA was not present in the specimen above the limit of detection. A negative result does not rule out the possibility of COVID-19 and should not be used as the sole basis for treatment or patient management decisions. If COVID-19 is still suspected, based on exposure history together with other clinical findings, re-testing should be considered in consultation with public health authorities. Laboratory test results should always be considered in the context of clinical observations and epidemiological data in making a final diagnosis and patient management decisions. Please review the Fact Sheets and FDA authorized labeling available for health care providers and patients using the following websites: https://www.[employer].WebLayers/home/Covid-19/HCP/NAAT/fact-sheet2 https://www.[employer].WebLayers/home/Covid-19/Patients/NAAT/ fact-sheet2 This test has been authorized by the FDA under an Emergency Use Authorization (EUA) for use by authorized laboratories. Due to the current public health emergency, [facility] is receiving a high volume of samples from a wide variety of swabs and media for COVID-19 testing. In order to serve patients during this public health crisis, samples from appropriate clinical sources are being tested. Negative test results derived from specimens received in non-commercially manufactured viral collection and transport media, or in media and sample collection kits not yet authorized by FDA for COVID-19 testing should be cautiously evaluated and the patient potentially subjected to extra precautions such as additional clinical monitoring, including collection of an additional specimen. Methodology: Nucleic Acid Amplification Test (NAAT) includes RT-PCR or TMA Additional information about COVID-19 can be found at the [facility] website: www.[employer].gg.WebLayers/Covid19. Test performed at [facility] [id number] [place] [phone] Director: RICARDO VALDEZ DO,MPH FIRST TEST UNKNOWN 09/23/2020 8:19 AM [facility] EMPLOYED IN HEALTHCARE UNKNOWN 09/23/2020 8:19 AM [facility] SYMPTOMATIC DEFINED BY CDC NO 09/23/2020 8:19 AM [facility] DATE OF SYMPTOM ONSET UNKNOWN 09/23/2020 8:38 AM [facility] HOSPITALIZATION STATUS NO 09/23/2020 8:19 AM [facility] PATIENT IN ICU NO 09/23/2020 8:19 AM [facility] RESIDENT OF [facility] UNKNOWN 09/23/2020 8:19 AM [facility] NO 09/23/2020 8:38 AM HYDRAULIC ENGINEER [facility] PATIENT'S RACE PATIENT DECLINED 04/2021 8:19 AM HYDRAULIC ENGINEER [facility] ETHNICITY UNKNOWN 09/23/2020 8:19 AM HYDRAULIC ENGINEER [facility] SOURCE (QST) NASOPHARYNGEAL SWAB 09/23/2020 8:19 AM HYDRAULIC ENGINEER [facility] NASOPHARYNGEAL SWAB / Unknown 09/23/2020 8:33 AM HYDRAULIC ENGINEER us Triston Mayes MD MICROBIOLOGY - GENERAL ORDERAB LES Final Result Performing Organization Address City/State/[facility] Co de Phone Number [facility] [address] [place] [address], [facility] [id number] [place] [address], documented in this encounter Visit Diagnoses Diagnosis Preoperative testing- Primary Preoperative examination, unspecified Preop testing Preoperative examination, unspecified documented in this encounter Additional Health Concerns Infection Onset Date Last Indicated Resolved Time COVID-19 Rule Out 09/23/2020 09/23/2020 09/24/2020 2:52 PM HYDRAULIC ENGINEER COVID-19 Rule Out 10/21/2020 10/21/2020 10/22/2020 7:41 PM HYDRAULIC ENGINEER documented as of this encounter Care Teams Vendor Management Consultant Relationship Specialty Start Date End Date Coy Schafer MD [address] [place] [phone] PCP - General INTERNAL MEDICINE 09/20/20 documented as of this encounter
--- OUTSIDE RECORDS SUMMARY | 2025-03-26 01:14 | XMS_ITS | Clinical Summary ---
Author Organization [facility] [address] Address [address] [place] [address] Care Team Providers Care Java Sql Developer Name Role Phone Coy Schafer MD Primary Care Provider [phone] Allergies No known active allergies Medications lisinopril (PRINIVIL,ZESTRI L) 10 mg tablet 12/20/19 18 Active dutasteride-tams ulosin 0.5-0.4 mg capsule, ER multiphase 24 hr 02/08/20 18 Active magnesium chloride 71.5 mg tablet,delayed release (DR/EC) Take by mouth 2 (two) times a day. Active ib-4-pmk-epa-fis h oil-vit D3 300-1,000-1,000 mg-mg-unit capsule Take by mouth. Active rosuvastatin (CRESTOR) 10 mg tablet Take 1 tablet (10 mg total) by mouth daily Active tamsulosin (FLOMAX) 0.4 mg extended release capsule 03/25/20 20 Active dutasteride (AVODART) 0.5 mg capsule 03/28/20 20 Active cholecalciferol (VITAMIN D-3) 2000 unit tablet Act ana cyanocobalamin, vitamin B-12, 1,000 mcg/mL drops Take by mouth Active nitrofurantoin monohydrate (MACROBID) 100 mg capsule Take 1 capsule (100 mg total) by mouth 2 (two) times a day 10/03/19 24 Active dronedarone (Multaq) 400 mg tablet TAKE ONE (1) TABLET (400 MG TOTAL) BY MOUTH TWO (2) TIMES a DAY WITH MEALS. 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 30 tablet 3 11/13/19 25 025 Discontinued dronedarone (Multaq) 400 mg tablet TAKE ONE (1) TABLET (400 MG TOTAL) BY MOUTH TWO (2) (TWO) TIMES a DAY WITH MEALS. 60 tablet 3 11/13/19 25 025 Discontinued Active Problems Patient Care Coordination No te Formatting of this note migh t be different from the original. Hearing loss Problem Noted Date Diagnosed Date Sensorineural hearing loss, asymmetrical 023 Paroxysmal atrial fibrillation 06/24/2018 Resolved Problems Problem Noted Date Diagnosed Date Resolved Date Tinnitus, bilateral 04/29/2023 04/29/20 23 Surgical History Surgery Date Site/Laterality Comments SMALL INTESTINE SURGERY perforated CATARACT EXTRACTION REPLACEMENT TOTAL KNEE TOTAL ELBOW REPLACEMENT Medical History Medical History Date Comments Atrial fibrillation (HCC) Hypertension Other atrophic disorders of skin HL (hearing loss) Stroke (HCC) Family History Medical History Relation Name Comments Suicidality Brother No Known Problems Father Dementia Mother Relation Name Status Comments Brother Father Mother Social History Tobacco Use Types Packs/Day Years Used Date Smoking Tobacco: Never Smokeless Tobacco: Never Tobacco Cessation:Counseling Given: Not Answered Alcohol Use Standard Drinks/Week Comments No 0 (1 standard drink = 0.6 oz pur e alcohol) AUDIT-C Answer Date Recorded Q1: How often do you have a drink containing alc ohol? Monthly or less 04/29/2023 Q2: How many drinks containi ng alcohol do you have on a typical day when you are drinking? 1 or 2 04/29/2023 Frequency of Binge Drinking Not on file 04/16 Sex and Gender Information Value Date Recorded Sex Assigned at Not on file Legal Sex Male 3:14 AM PLATE DRYING MACHINE TENDER Gender Identity Male 10/03/2021 9:50 AM PLATE DRYING MACHINE TENDER Sexual Orientation Straight 10/03/2021 9: 51 AM PLATE DRYING MACHINE TENDER Obstetrics History Last Filed Vital Signs Vital Sign Reading Time Taken Comments Blood Pressure 138/82 10/29/2024 2:21 PM PLATE DRYING MACHINE TENDER Pulse 65 10/29/2024 2:21 PM PLATE DRYING MACHINE TENDER Temperature - - Respiratory Rate 15 03/31/2020 8:55 AM CDT Oxygen Saturation 96% 10/29/2024 2:21 PM PLATE DRYING MACHINE TENDER Inhaled Oxygen Concentration - - Weight 94.8 kg (209 lb) 10/29/2024 2:21 PM PLATE DRYING MACHINE TENDER Height 175.3 cm (5' 9) 10/29/2024 2:21 PM PLATE DRYING MACHINE TENDER Body Mass Index 30.86 10/29/2024 2:21 PM PLATE DRYING MACHINE TENDER Plan of Treatment Health Maintenance Due Date Last Done Comments Depression Screening 1945 Hepatitis C Screening 1945 DTaP/Tdap/Td Vaccine (1 - Tdap) 1957 Hepatitis B Screening 1964 Zoster Vaccine (1 of 2) 1996 Well Visit 65+ 2011 Pneumococcal vaccine 65+ (2 of 2 - PCV) 07/29/2013 07/29/2012 Fall Risk Assessment 03/31/2021 03/31/2020 Influenza Vaccine (#1) 2025 0, 07/14/2018, 06/15/2015, Additional history exists Insurance MEDICARE COMMERCIAL GENERIC MEDICARE COMMERCIAL GENERIC MEDICARE COMMERCIAL GENERIC Care Teams Java Sql Developer Relationship Specialty Start Date End Date Coy Schafer MD [address] [place] [address] PCP - General Internal Medicine 12/15/17
--- OUTSIDE RECORDS SUMMARY | 2025-03-26 01:14 | XMS_ITS | Referral Summary ---
Author Organization [facility] [address] Address [address] [place] [address] Care Team Providers Care Geography Faculty Member Name Role Phone Coy Schafer MD Primary Care Provider [phone] Allergies No known active allergies Medications lisinopril (PRINIVIL,ZESTRI L) 10 mg tablet 12/20/19 18 Active dutasteride-tams ulosin 0.5-0.4 mg capsule, ER multiphase 24 hr 02/08/20 18 Active magnesium chloride 71.5 mg tablet,delayed release (DR/EC) Take by mouth 2 (two) times a day. Active fo-4-iao-epa-fis h oil-vit D3 300-1,000-1,000 mg-mg-unit capsule Take [...] Resolved Date Tinnitus, bilateral 04/29/2023 04/29/20 23 Social History Tobacco Use Types Packs/Day Years [...] on file Legal Sex Male 3:14 AM CHECKER PRODUCT DESIGN Gender Identity Male 10/03/2021 9:50 AM CHECKER PRODUCT DESIGN Sexual Orientation Straight 10/03/2021 9: 51 AM CHECKER PRODUCT DESIGN Last Filed Vital Signs Vital Sign Reading Time Taken Comments Blood Pressure 138/82 10/29/2024 2:21 PM CHECKER PRODUCT DESIGN Pulse 65 10/29/2024 2:21 PM CHECKER PRODUCT DESIGN Temperature - - Respiratory Rate 15 03/31/2020 8:55 AM CDT Oxygen Saturation 96% 10/29/2024 2:21 PM CHECKER PRODUCT DESIGN Inhaled Oxygen Concentration - - Weight 94.8 kg (209 lb) 10/29/2024 2:21 PM CHECKER PRODUCT DESIGN Height 175.3 cm (5' 9) 10/29/2024 2:21 PM CHECKER PRODUCT DESIGN Body Mass Index 30.86 10/29/2024 2:21 PM CHECKER PRODUCT DESIGN Plan of Treatment Not on file Insurance MEDICARE [employer] [facility] MEDICARE COMMERCIAL GENERIC MEDICARE [facility] Address: [address] [address] [place] [address] COMMERCIAL GENERIC Care Teams Geography Faculty Member Relationship Specialty Start Date End Date Coy Schafer MD [address] [facility] [address] [place] [id number] PCP - General Internal Medicine 12/15/17
[2025-03-26 09:34] VITALS: BP 127/74; PULSE 80; RESP 18; TEMP 36.7; O2SAT 100
[2025-03-26] MEDS: LACTATED RINGERS 1,000 ML 150 ML IV CONT (09:48)
--- NOTE | 2025-03-26 10:08 | WPDANESEPPF ---
Anes - Initial Pre Proc Eval Procedure: Operation Date: 03/26/25 11:00 Proposed Procedures p Colonoscopy - Nelson Gan MD Date/Time: 03/26/25 10:08 Surgeon: Nelson Gan MD Pre Op Diagnosis: other fecal abnormalites Patient Data Age: 79 Gender: M Height: 1.75 m Weight: 89.5 kg Last Vital Signs Temp 36.7 C 03/26/25 09:34 Pulse 80 03/26/25 09:34 Resp 18 03/26/25 09:34 BP 127/74 03/26/25 09:34 Pulse Ox 100 03/26/25 09:34 O2 Del Method Room Air 03/26/25 09:34 Allergies Allergy/AdvReac Type Severity Reaction Status Date / Time No Known Allergies Allergy Verified 03/26/25 09:32 Home Medications ?Medication ?Instructions ?Recorded ?Confirmed ?Type dronedarone 400 mg tablet (Multaq) 400 mg PO BID 08/20/19 03/26/25 History dutasteride 0.5 mg-tamsulosin ER 1 cap PO DAILY 08/20/19 03/08/25 History 0.4 mg capsule ext.release 24hr mphas (Hilary) magnesium chloride 71.5 mg 71.5 mg PO BID 08/20/19 03/26/25 History (magnesium chloride) tablet,delayed release (Slow-Mag) rivaroxaban 20 mg tablet (Xarelto) 20 mg PO DAILY 08/20/19 03/26/25 History omega 8-lgu-irp-fish oil 1,000 mg 1 cap PO DAILY 11/29/20 03/26/25 History (120 mg-180 mg) capsule (Fish Oil) cholecalciferol (vitamin D3) 50 50 mcg PO DAILY 04/04/21 03/26/25 History mcg (2,000 unit) capsule ascorbic acid (vitamin C) 1,000 mg 1 g PO DAILY 09/18/23 03/26/25 History capsule suxbkmlg-hs-cxiyu 300 mcg-K 60 1 tablet PO DAILY 09/18/23 03/26/25 History mcg-lycop 600 mcg-lutein 300 mcg tablet (Centrum Silver Men) tamsulosin 0.4 mg capsule 0.4 mg PO DAILY 12/25/23 03/26/25 History folic acid 800 mcg tablet 0.8 mg PO DAILY 06/19/24 03/26/25 History lisinopril 10 mg tablet See Rx Instructions .Route 10/15/24 03/26/25 Rx .COMPLEX #90 tabs rosuvastatin 10 mg tablet See Rx Instructions .Route 12/10/24 03/26/25 Rx .COMPLEX #90 tabs SUPER BEETS 1 cap PO BID 03/08/25 03/26/25 History dutasteride 0.5 mg capsule 0.5 mg PO DAILY 03/08/25 03/26/25 History Patient hx anesthesia problems: none Family hx anesthesia problems: none Results Review: All pre-operative results and documents have been reviewed as part of the pre-operative evaluation. [facility] Past Medical History Medical History Fatigue Colon cancer screening Low hemoglobin and low hematocrit Effusion of knee joint right BMI 29.0-29.9,adult BMI 30.0-30.9,adult Pre-diabetes Chronic low back pain Change in nail appearance Changing skin lesion Encounter for routine adult health examination with abnormal findings BPPV (benign paroxysmal positional vertigo) BONNY on CPAP Personal history of COVID-19 BMI 31.0-31.9,adult Onychomycosis Vitamin B12 deficiency Exposure to COVID-19 virus Elevated PSA Encounter for Medicare annual wellness exam BMI 32.0-32.9,adult Cat scratch of lower leg Right ankle swelling BMI 34.0-34.9,adult Encounter for routine adult health examination without abnormal findings Macrocytosis Cough Vitamin D deficiency Routine eye exam Family history of diabetes mellitus 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 BMI 33.0-33.9,adult BPH (benign prostatic hyperplasia) DJD (degenerative joint disease) Hypomagnesemia Hyperlipidemia Hypertension CVA (cerebral vascular accident) 12/2017 Atrial fibrillation Surgical History Surgical History S/P cataract surgery History of total knee replacement (TKR) Family History Family History Sibling Patient's brother is Father Family history of kidney disease Family history of diabetes mellitus in first degree relative, Onset Age: 90 Family history of dementia Family history of congestive heart failure Patient's father is , Onset Age: 90 Diabetes mellitus Mother Family history of Alzheimer's disease Patient's mother is , Onset Age: 87 Other Family history of cardiovascular disease Family history of suicide Social History Social History Smoking status: Never smoker Second hand tobacco smoke exposure: No Alcohol intake: never Lack of Transportation: No Lack of Food: Never True Current Housing: I Have Housing Concerned About Future Housing: No Difficulty Paying Gas/Electric Bills: No Difficulty Paying for Meds: No Currently Unemployed: No Education: Bachelor's Degree Difficulty w/ Childcare or Family Care: No Gender identity (if verbalized by the patient): Male Anes - Eval Final PreProcedure Day of Procedure 03/26/25 10:08 Patient weight: overweight Heart: irregular rhythm Lungs: decreased breath sounds Airway: Mallampati scale class III Neurological: alert and oriented Last oral intake: >/= 8 hours ASA classification: IV Emergent: no Anesthetic plan: proceed Anesthesia type and monitoring: general GIVS and standard monitoring Results Review: All pre-operative results and documents have been reviewed as part of the pre-operative evaluation. Informed Consent: The patient's anesthetic plan and its attendant risks and benefits were discussed with the patient/family/POA. Questions were solicited and answers provided to the satisfaction of the patient/family/POA.
--- NOTE | 2025-03-26 10:23 | P.HP_ITS ---
H&P: HPI History of Present Illness Date/Time: 03/26/25 10:23 Chief Complaint: Hemoccult-positive stools Narrative: patient referred by his primary care physician for the finding of Hemoccult positive stools. He states he had history of polyps in the past, however his last colonoscopy did not show any polyps. Review of Systems Review of Systems: All systems reviewed & are unremarkable except as noted in HPI and below PMFSH Past Medical History Medical History Fatigue Colon cancer screening Low hemoglobin and low hematocrit Effusion of knee joint right BMI 29.0-29.9,adult BMI 30.0-30.9,adult Pre-diabetes Chronic low back pain Change in nail appearance Changing skin lesion Encounter for routine adult health examination with abnormal findings BPPV (benign paroxysmal positional vertigo) BONNY on CPAP Personal history of COVID-19 BMI 31.0-31.9,adult Onychomycosis Vitamin B12 deficiency Exposure to COVID-19 virus Elevated PSA Encounter for Medicare annual wellness exam BMI 32.0-32.9,adult Cat scratch of lower leg Right ankle swelling BMI 34.0-34.9,adult Encounter for routine adult health examination without abnormal findings Macrocytosis Cough Vitamin D deficiency Routine eye exam Family history of diabetes mellitus 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 BMI 33.0-33.9,adult BPH (benign prostatic hyperplasia) DJD (degenerative joint disease) Hypomagnesemia Hyperlipidemia Hypertension CVA (cerebral vascular accident) 12/2017 Atrial fibrillation Surgical History Surgical History S/P cataract surgery History of total knee replacement (TKR) Family History Family History Sibling Patient's brother is Father Family history of kidney disease Family history of diabetes mellitus in first degree relative, Onset Age: 90 Family history of dementia Family history of congestive heart failure Patient's father is , Onset Age: 90 Diabetes mellitus Mother Family history of Alzheimer's disease Patient's mother is , Onset Age: 87 Other Family history of cardiovascular disease Family history of suicide Social History Social History Smoking status: Never smoker Second hand tobacco smoke exposure: No Alcohol intake: never Lack of Transportation: No Lack of Food: Never True Current Housing: I Have Housing Concerned About Future Housing: No Difficulty Paying Gas/Electric Bills: No Difficulty Paying for Meds: No Currently Unemployed: No Education: Bachelor's Degree Difficulty w/ Childcare or Family Care: No Gender identity (if verbalized by the patient): Male Meds Home Medications and Allergies Home Medications ?Medication ?Instructions ?Recorded ?Confirmed ?Type dronedarone 400 mg tablet (Multaq) 400 mg PO BID 08/20/19 03/26/25 History dutasteride 0.5 mg-tamsulosin ER 1 cap PO DAILY 08/20/19 03/08/25 History 0.4 mg capsule ext.release 24hr mphas (Hilary) magnesium chloride 71.5 mg 71.5 mg PO BID 08/20/19 03/26/25 History (magnesium chloride) tablet,delayed release (Slow-Mag) rivaroxaban 20 mg tablet (Xarelto) 20 mg PO DAILY 08/20/19 03/26/25 History omega 3-peu-ocx-fish oil 1,000 mg 1 cap PO DAILY 11/29/20 03/26/25 History (120 mg-180 mg) capsule (Fish Oil) cholecalciferol (vitamin D3) 50 50 mcg PO DAILY 04/04/21 03/26/25 History mcg (2,000 unit) capsule ascorbic acid (vitamin C) 1,000 mg 1 g PO DAILY 09/18/23 03/26/25 History capsule aeojpixj-pn-aiwlz 300 mcg-K 60 1 tablet PO DAILY 09/18/23 03/26/25 History mcg-lycop 600 mcg-lutein 300 mcg tablet (Centrum Silver Men) tamsulosin 0.4 mg capsule 0.4 mg PO DAILY 12/25/23 03/26/25 History folic acid 800 mcg tablet 0.8 mg PO DAILY 06/19/24 03/26/25 History lisinopril 10 mg tablet See Rx Instructions .Route 10/15/24 03/26/25 Rx .COMPLEX #90 tabs rosuvastatin 10 mg tablet See Rx Instructions .Route 12/10/24 03/26/25 Rx .COMPLEX #90 tabs SUPER BEETS 1 cap PO BID 03/08/25 03/26/25 History dutasteride 0.5 mg capsule 0.5 mg PO DAILY 03/08/25 03/26/25 History Allergies Allergy/AdvReac Type Severity Reaction Status Date / Time No Known Allergies Allergy Verified 03/26/25 09:32 Vital Signs Vital Signs - 24 hr 03/26/25 09:34 Temperature 98.1 F Pulse Rate 80 Respiratory Rate 18 Blood Pressure 127/74 Pulse Oximetry 100 Oxygen Delivery Room Air Exam Const: General: cooperative and healthy appearing Resp: Effort & Inspection: normal respiratory effort and able to speak in complete sentences Auscultation: clear to auscultation bilaterally Cardio: Rate: regular rate Rhythm: regular rhythm GI: Inspection: normal to inspection GI Palp: No No hepatosplenomegaly present Auscultation: normal bowel sounds Rectal Exam: deferred Skin: General skin exam: normal color Psych: Appearance: grossly normal Mental Status: mental status grossly normal Assessment and Plan Assessment and plan (1) Colon cancer screening: Code(s): Z12.11 - Encounter for screening for malignant neoplasm of colon Status: Acute Assessment and Plan: The patient is deemed a good candidate for the procedure. Consent signed. Will proceed.
[2025-03-26 10:48] VITALS: BP 103/68; PULSE 57; RESP 19; O2SAT 97
[2025-03-26 10:58] VITALS: BP 120/76; PULSE 70; RESP 22; O2SAT 100
[2025-03-26 11:08] VITALS: BP 127/78; PULSE 73; RESP 18; O2SAT 100
== END 2025-03-26 11:26 | disposition home or self-care (01) ==
PROVIDERS: PCP Internal Medicine; Referring Provider Internal Medicine; Visit Provider Internal Medicine Gastroenterology
PROC: 0DJD8ZZ Inspection of Lower Intestinal Tract, Via Natural or Artificial Opening Endoscopic (ICD-10-PCS; CPT 45378; principal; 2025-03-26 11:00)
DX: R19.5 Other fecal abnormalities (principal); K64.8 Other hemorrhoids; K57.30 Diverticulosis of large intestine without perforation or abscess without bleeding; E78.5 Hyperlipidemia, unspecified; I10 Essential (primary) hypertension; I48.91 Unspecified atrial fibrillation; R73.03 Prediabetes; G47.33 Obstructive sleep apnea (adult) (pediatric); E53.8 Deficiency of other specified B group vitamins; E55.9 Vitamin D deficiency, unspecified; N40.0 Benign prostatic hyperplasia without lower urinary tract symptoms; G89.29 Other chronic pain; M54.50 Low back pain, unspecified; Z99.89 Dependence on other enabling machines and devices; Z79.01 Long term (current) use of anticoagulants; Z79.899 Other long term (current) drug therapy; Z98.890 Other specified postprocedural states; Z86.79 Personal history of other diseases of the circulatory system; Z82.49 Family history of ischemic heart disease and other diseases of the circulatory system
CPT/HCPCS: 45378; J2003; J2704; J7120